=== PATIENT | female | born 2000 | race Caucasian/White ===

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

== ENCOUNTER 2023-04-26 03:25 | Emergency (ER) | payer OTHER ==
[~2023-04-26] VITALS: Ht 160 cm; Wt 95.2 kg
[~2023-04-26 03:25] MED LIST: TOPUD PO
[2023-04-26 04:00] VITALS: BP 120/63; O2SAT 100
[2023-04-26] MEDS ORDERED: ACETAMINOPHEN 325MG TABLET PO ONE (07:00)
[2023-04-26] MEDS ORDERED: TOPUD PO (07:11)
[2023-04-26 07:32] VITALS: PULSE 89; RESP 18; TEMP 98.3
== END 2023-04-26 07:32 | disposition home or self-care (01) ==
LOC: ER 03:25
DX: R20.2 Paresthesia of skin (principal)
CPT/HCPCS: 81025; 99284